=== PATIENT | male | born 1965 | race Caucasian/White ===

== ENCOUNTER 2018-03-25 16:38 | Outpatient (REF) | payer OTHER, SELFPAY ==
[2018-03-25 21:50] LABS: Anion Gap 7.1 mmol/L (3-11); BUN 12 mg/dL (7-18); CO2 30.9 mmol/L (21.0-32.0); CREATININE 0.74 mg/dL (0.70-1.30); Calcium 9.1 mg/dL (8.5-10.1); Chloride 102 mmol/L (98-107); Glucose 87 mg/dL (70-100); Potassium 3.4 mmol/L (3.5-5.1); Sodium 140 mmol/L (136-145)
== END 2018-03-25 16:58 ==
LOC: NCHCN 16:38
PROVIDERS: PCP Internal Medicine; Visit Provider Internal Medicine
DX: I10 Essential (primary) hypertension (principal)
CPT/HCPCS: 80048

== ENCOUNTER 2018-10-02 15:00 | Outpatient (REF) | payer OTHER, SELFPAY ==
[2018-10-02 21:39] LABS: Potassium 3.6 mmol/L (3.5-5.1)
== END 2018-10-02 15:20 ==
LOC: NCHCN 15:00
PROVIDERS: PCP Internal Medicine; Visit Provider Internal Medicine
DX: E87.6 Hypokalemia (principal)
CPT/HCPCS: 84132

== ENCOUNTER 2018-10-16 10:06 | Emergency (ER) | payer OTHER, SELFPAY ==
[2018-10-16 10:21] VITALS: BP 152/88; PULSE 81; RESP 16; TEMP 36.6; O2SAT 97
--- NOTE | 2018-10-16 10:42 | ED.GENADUL_ITS ---
Discharge Plan Disposition Patient Disposition: HOME Condition: Stable Discharge Details Chief Complaint: Orthopedic Clinical Impression: Sprain of left shoulder Primary Care Provider: Florencio Begum ED Provider: Brandon Goddard Home Meds and New Rx's Prescriptions: No Action ibuprofen [Ibuprofen IB] 200 MG tablet 200 mg PO PRN PRNRF: 0 hydrochlorothiazide 25 MG tablet 25 mg PO QAM RF: 0 losartan 100 MG tablet 100 mg PO DAILY RF: 0 amlodipine 5 MG tablet 5 mg PO DAILY RF: 0 potassium chloride 10 mEq Capsule, Extended Release 10 meq PO DAILY RF: 0 Discharge Instructions Instructions: Shoulder Sprain (ED) Additional Instructions: you can take 1000mg tylenol and 600mg ibuprofen every 6 hours for pain as needed if pain continues in a week see your primary care provider or you can call orthopedics if you choose for an appointment for a possible rotator cuff injury Referrals: Chito Taylor MD [ [facility] STAFF PHYSICIAN] - Medical Decision Making patient states on Saturday he was lifting the back door of a truck that was heavy and when it was above his shoulder he extended his arm and caused pain in the left shoulder. Denies falls or other trauma. Has had pain since so came here. He has no palpable or visible deformity of the left shoulder. Has pain with rom but is able to range it to just about 90 degrees abduction then I can passively range it fully so doubt fx and dislocation and do not feel xray indicated. Has intact distal sensation and pulses without swelling so doubt entities such as dvt or arterial occlusion. He has full rom of the elbow wrist and hand. He is able to slowly lower the shoulder to his side so doubt full rotator cuff tear. I suspect sprain, will give sling to use prn and advised f/u with pcp if not bett er in a week or orthopedics Differential Diagnosis sprain, strain, rotator cuff injury HPI General Mode of arrival: ambulatory . Date/Time Provider Initiated Documentation: 10/16/18 10:26 . Limitations to Documentation: no limitations . Information obtained by: patient . History of Present Illness 52 year old M presents to the emergency department with the chief complaint of left shoulder pain, described as moderate, Quality is described as aching, and is localized to the left and upper extremity. Patient reports no radiation. Patient started experiencing this day(s) (3) and it has been constant. Rest improves symptom(s), Movement worsens symptoms . Patient notes no other symptoms.. Patient did receive the following treatments prior to arrival, none Related Data Home Medications Medication Instructions Recorded Confirmed hydrochlorothiazide 25 mg PO QAM 12/21/12 10/16/18 ibuprofen [Ibuprofen IB] 200 mg PO PRN PRN 12/21/12 10/16/18 losartan 100 mg PO DAILY 12/21/12 10/16/18 amlodipine 5 mg PO DAILY 05/25/14 10/16/18 potassium chloride 10 meq PO DAILY 10/16/18 10/16/18 Allergies Allergy/AdvReac Type Severity Reaction Status Date / Time bee Allergy Unknown Uncoded 10/16/18 10:23 General Stated Complaint: Orthopedic BEN: 4 Review of Systems Review of Systems All systems reviewed & are unremarkable except as noted in HPI and below Constitutional Denies chills, Denies fever(s) and Denies weakness Cardiovascular Denies chest pain and Denies dyspnea Respiratory Denies cough and Denies dyspnea Gastrointestinal Denies abdominal pain, Denies nausea and Denies vomiting Integumentary/Breasts Denies rash Neurologic Denies weakness [facility] Medical History Arthralgia HTN (hypertension) Surgical History Colonoscopy - MAC (11/04/17) Social History Smoking/Tobacco Use Status: Former Tobacco Use Drug use: Never Exam Const General: no acute distress Orientation: alert HENMT Head: normal to inspection Ears: external ears normal General nose exam: external nose normal Mouth: moist mucous membranes Eyes General: appearance normal, both eyes and all related structures Neck Neck: normal visual inspection Resp Effort & Inspection: normal respiratory effort and able to speak in complete sentences Cardio Rate: regular rate Skin General skin exam: no rashes or lesions noted Neuro General: alert and oriented x3 Extrem General: normal to inspection Psych Mental Status: mental status grossly normal Course Vital Signs Temperature 36.6 C 10/16/18 10:21 Pulse 81 10/16/18 10:21 Respiratory Rate 16 10/16/18 10:21 Blood Pressure 152/88 H 10/16/18 10:21 Pulse Oximetry 97 10/16/18 10:21 Temperature 36.6 C 10/16/18 10:21 Temperature Source Skin 10/16/18 10:21 Pulse 81 10/16/18 10:21 Respiratory Rate 16 10/16/18 10:21 Respiratory Effort Non-Labored 10/16/18 10:21 Blood Pressure 152/88 H 10/16/18 10:21 Blood Pressure Position Sitting 10/16/18 10:21 Pulse Oximetry 97 10/16/18 10:21 Oxygen Delivery Method Room Air 10/16/18 10:21 Oxygen Flow Rate 0 10/16/18 10:21 Pain Level 8 10/16/18 10:21
== END 2018-10-16 10:51 | disposition home or self-care (01) ==
PROVIDERS: Emergency Provider Emergency Medicine; PCP Internal Medicine
DX: S43.402A Unspecified sprain of left shoulder joint, initial encounter (principal); X50.0XXA Overexertion from strenuous movement or load, initial encounter
CPT/HCPCS: 96372; 99284; J1885; L3650

== ENCOUNTER 2019-12-09 08:44 | Outpatient (REF) | payer OTHER, SELFPAY ==
[2019-12-09 21:51] LABS: Anion Gap 6.9 mmol/L (3-11); BUN 13 mg/dL (7-18); CO2 31.1 mmol/L (21.0-32.0); CREATININE 0.86 mg/dL (0.70-1.30); Calcium 8.9 mg/dL (8.5-10.1); Calculated LDL 92 mg/dL (<100); Chloride 105 mmol/L (98-107); Cholesterol 167 mg/dL (<200); Glucose 83 mg/dL (74-106); HDL Cholesterol 59 mg/dL (40-60); Potassium 4.2 mmol/L (3.5-5.1); Sodium 143 mmol/L (136-145); Triglyceride 83 mg/dL (<150)
[2019-12-11 11:11] LABS: Lyme Ab w Rflx to Lyme Confirm Negative (Negative)
[2019-12-14 23:59] LABS: Anaplasma phagocytophilum Negative (Negative); B. miyamotoi PCR Negative (Negative); Babesia divergens/MO-1 Negative (Negative); Babesia duncani Negative (Negative); Babesia microti Negative (Negative); Ehrlichia chaffeensis Negative (Negative); Ehrlichia ewingii/canis Negative (Negative); Ehrlichia muris eauclairensis Negative (Negative)
== END 2019-12-09 09:04 ==
LOC: NCHCN 08:44
PROVIDERS: PCP Internal Medicine; Visit Provider Physician Assistant
DX: I10 Essential (primary) hypertension (principal); M25.50 Pain in unspecified joint
CPT/HCPCS: 80048; 80061; 87798; 86618

== ENCOUNTER 2020-09-27 09:58 | Outpatient (REF) | payer OTHER, SELFPAY ==
[2020-09-27 13:19] LABS: Anion Gap 8.1 mmol/L (3-11); BUN 14 mg/dL (7-18); CO2 28.9 mmol/L (21.0-32.0); CREATININE 0.8 mg/dL (0.70-1.30); Calcium 9.1 mg/dL (8.5-10.1); Chloride 102 mmol/L (98-107); Glucose 85 mg/dL (74-106); Potassium 3.9 mmol/L (3.5-5.1); Sodium 139 mmol/L (136-145)
== END 2020-09-27 09:59 | disposition home or self-care (01) ==
LOC: NCHCN 09:58
PROVIDERS: PCP Internal Medicine; Visit Provider Internal Medicine
DX: I10 Essential (primary) hypertension (principal)
CPT/HCPCS: 80048

== ENCOUNTER 2020-10-31 22:02 | Emergency (ER) | payer OTHER, SELFPAY ==
[2020-10-31 22:20] VITALS: BP 174/92; PULSE 69; RESP 18; TEMP 36.7; O2SAT 98
[2020-10-31 22:30] VITALS: BP 174/92; PULSE 72; O2SAT 98
--- NOTE | 2020-10-31 22:30 | ED.GENADUL_ITS ---
Discharge Plan Disposition Patient Disposition: HOME Condition: Stable Discharge Details Clinical Impression: Abdominal pain, Nausea, Lesion of liver Primary Care Provider: Florencio Begum ED Provider: Ron Saenz Home Meds and New Rx's Prescriptions: Continued ibuprofen [Ibuprofen IB] 200 MG tablet 200 mg PO PRN PRNRF: 0 hydrochlorothiazide 25 MG tablet 25 mg PO QAM RF: 0 losartan 100 MG tablet 100 mg PO DAILY RF: 0 amlodipine 5 MG tablet 5 mg PO DAILY RF: 0 potassium chloride 10 mEq Capsule, Extended Release 10 meq PO DAILY RF: 0 Discharge Instructions Instructions: Abdominal Pain (ED) Additional Instructions: At this time your CAT scan and labs are very reassuring. Your pain may have been from a kidney stone that was passed. Please take the Zofran nausea medicine as needed. Stick with an easy diet for the next few days of bananas, rice, applesauce and toast. If you notice any worsening of your symptoms, or any new symptoms such as vomiting, diarrhea, fever, chills, shortness of breath, chest pain, numbness, weakness, or fainting , please return immediately to the emergency department for reevaluation. Please follow up with your primary care provider as soon as possible for reassessment and reevaluation. As always, it was a pleasure participating in your medical care today. As we discussed together there are some very small indiscriminate lesions on your liver and adrenal glands. These are likely benign and unremarkable. However as a safety precaution I will add these to your diagnoses for follow-up with your primary care provider. No indication for emergent or immediate follow-up for these at this time though. Referrals: Florencio Begum MD [Primary Care Provider] - Medical Decision Making <Brandon Goddard MD - Last Filed: 10/31/20 22:35> 55 yo male with hx of htn denies prior abdomen surgeries comes in with nausea and lower abdomen pain. HE states 3 days ago he started to have right lower abdomen pain which resolved yesterday. HE has also had nausea and today lower abdomen discomfort left more than right. Denies vomit, diarrhea, fevers, chest pain, dyspnea. HAs never had symptoms like this before in the past. On exam has no upper abdomen tenderness but is tender in the lower abdomen left more than right without guarding or rebound. No scrotal swelling or tenderness. Given symptoms and location of pain will obtain lab work and ct abd/pelvis to evaluate for possible diverticulitis vs sbo pt signed out to oncoming provider pending labs and imaging results Differential Diagnosis Differential Diagnosis: diverticulitis, sbo, constipation <Ron Saenz, - Last Filed: 11/01/20 00:07> Patient was signed out to me by my colleague Dr. Goddard. Please refer to his HPI, physical exam assessment and plan. At time of signout we are pending labs and CT scan. Labs have returned, mild white count, no bandemia. Electrolytes stable, potassium minimally low at 3.3. Urinalysis shows a small amount of RBCs, but otherwise no infection. On reassessment patient's pain is nearly completely resolved, he feels much better and states that he now feels hungry and would like to go home and eat. Repeat abdominal exam demonstrates no clinical evidence of an acute surgical abdomen at all. Suspect that the patient may have had a small passed kidney stone, or potentially mild gastroenteritis. At this time with work-up showing no evidence of acute surgical pathology, or other significant abnormality I do feel that the patient is stable for discharge clinically. Patient will be discharged home, discussed importance of close follow-up and red flags which to return. I did offer to call the patient's and inform her of the findings however he stated that he would fill her in on the details himself. I have extensively reviewed the treatment plan and disc harge instructions with the patient. I have addressed all patient concerns at this time. The patient was made aware of what symptoms to monitor for that would warrant a return to the emergency department. Discussed the plan with the patient, they demonstrate verbal understanding and agreement with our assessment and plan at this time. The documentation in this chart was dictated using [employer] dictation software. Please excuse any dictation errors. FINDINGS: Liver: Several small hypodensities within the right hepatic lobe, less than 5 mm, too small to accurately characterize. Gallbladder and bile ducts: No calcified stones. No ductal dilation. Pancreas: Unremarkable. No ductal dilation. Spleen: Unremarkable. No splenomegaly. Adrenal glands: Thickened left adrenal gland, however, no discrete adrenal masses or nodules identified. Right adrenal gland is grossly unremarkable. Kidneys and ureters: 5 mm left renal cortical hypodensity, too small to accurately characterize, likely small cyst. Stomach and bowel: Colonic diverticulosis. Appendix: No evidence of appendicitis. Intraperitoneal space: No free air. No significant fluid collection. Vasculature: Bilateral pelvic phleboliths. Lymph nodes: No enlarged lymph nodes. Urinary bladder: Unremarkable as visualized. Reproductive: Unremarkable as visualized. Bones/joints: Degenerative changes within lumbar spine. Soft tissues: Small fat containing umbilical hernia. IMPRESSION: No acute intra-abdominal pathology. No evidence for bowel obstruction or perforation. No evidence for colitis or diverticulitis. See the body of the report for the remainder of ancillary findings. Thank you for allowing us to participate in the care of your patient. Dictated and Authenticated by: Karlo Chase MD 10/31/2020 11:48 PM Eastern Time ([place] & [place]) HPI <Brandon Goddard MD - Last Filed: 10/31/20 22:35> General Mode of arrival: ambulatory . Date/Time Provider Initiated Documentation: 10/31/20 22:02 . Limitations to Documentation: no limitations . Information obtained by: patient . History of Present Illness 55 year old M presents to the emergency department with the chief complaint of nausea, described as moderate, and is localized to the abdomen. Patient reports no radiation. and it has been constant. No relieving factors improve symptom(s), No exacerbating factors reported . Patient notes other (abdomen pain). Patient did receive the following treatments prior to arrival, none Related Data Home Medications Medication Instructions Recorded Confirmed hydrochlorothiazide 25 mg PO QAM 12/21/12 10/16/18 ibuprofen [Ibuprofen IB] 200 mg PO PRN PRN 12/21/12 10/16/18 losartan 100 mg PO DAILY 12/21/12 10/16/18 amlodipine 5 mg PO DAILY 05/25/14 10/16/18 potassium chloride 10 meq PO DAILY 10/16/18 10/16/18 Allergies Allergy/AdvReac Type Severity Reaction Status Date / Time bee Allergy Unknown Uncoded 10/31/20 22:47 General BEN: 4 Review of Systems <Brandon Goddard MD - Last Filed: 10/31/20 22:35> All systems reviewed & are unremarkable except as noted in HPI and below Constitutional Constitutional: Denies chills, Denies fever(s) and Denies weakness Cardiovascular Cardiovascular: Denies chest pain and Denies dyspnea Respiratory Respiratory: Denies cough and Denies dyspnea Gastrointestinal Gastrointestinal: Denies vomiting Genitourinary Genitourinary: Denies dysuria Musculoskeletal Musculoskeletal: Denies joint swelling Neurologic Neurologic: Denies weakness PFSH <Brandon Goddard MD - Last Filed: 10/31/20 22:35> Medical History (Updated 11/01/20 @ 00:04 by Ron Saenz DO) Arthralgia HTN (hypertension) Surgical History Colonoscopy - MAC (11/04/17) Social History Smoking/Tobacco Use Status: Former Tobacco Use Smoking risk assessment performed?: Yes Drug use: Never Exam <Brandon Goddard MD - Last Filed: 10/31/20 22:35> Const General: no acute distress Orientation: alert HENNH Head: normal to inspection Ears: external ears normal General nose exam: external nose normal Mouth: moist mucous membranes Eyes General: appearance normal, both eyes and all related structures Neck Neck: normal visual inspection Resp Effort & Inspection: normal respiratory effort and able to speak in complete sentences Cardio Rate: regular rate GI Palpation: soft and tender Skin General skin exam: no rashes or lesions noted Neuro General: patient alert and patient oriented x3 Extrem General: normal to inspection Psych Mental Status: mental status grossly normal Sign Out <Brandon Goddard MD - Last Filed: 10/31/20 22:35> Sign Out Data: Sign Out Comment: nausea and lower abdomen tenderness, pending labs and ct Last updated by Brandon Goddard MD at 10/31/20 22:36
--- NOTE | 2020-10-31 22:30 | DI.CT_ITS ---
Exam(s) CT ABDOMEN PELVIS W EXAM: CT ABDOMEN PELVIS W CLINICAL HISTORY: abdomen pain, nausea and vomit TECHNIQUE: COMPARISON: No exams were available for comparison FINDINGS: CT examination of the abdomen and pelvis was performed with bolus infusion of 100 cc of Omnipaque 350 . Images obtained through the lung bases are unremarkable. The liver appears normal with no evidence of a focal mass. Spleen is unremarkable in appearance.. Gallbladder and bile ducts are unremarkable. Pancreas contains a midbody low-attenuation lobulated or multi septated mass, likely cystic, measurin g about 18 millimeters in greatest diameter period. Cystic pancreatic neoplasm not excluded, pancrea tic protocol MRI requested for further characterization. Adrenals appear normal bilaterally. Kidneys appear normal with no evidence of renal mass, hydronephrosis, or nephrolithiasis. Tiny lower pole left renal cyst noted. Unremarkable nearly empty urinary bladder. There is no evidence of abdominal or pelvic adenopathy. Abdominal aorta is of normal diameter and no abnormality is seen involving major visceral branches.. Appendix is normal. No evidence diverticulitis or bowel obstruction. No significant abdominal wall hernia seen. Impression: No evidence of acute process. However there is mid body pancreatic mass, likely cystic. Pancreatic MR requested for correlation. RADIATION DOSE DELIVERED: 970.79mGy.cm Total DLP 970.79mGy.cm Total DLP DATA REPOSITORY: All CT scans at this facility are submitted to the National Radiology Data Registry (NRDR) Dose Index Registry (DIR) with the [employer] (A[employer]). RADIATION OPTIMIZATION: All CT scans at this facility use at least one of these dose optimization te chniques: automated exposure control; mA and/or kV adjustment per patient size (includes targeted exa ms where dose is matched to clinical indication); or iterative reconstruction.
[2020-10-31 22:40] LABS: Abs Immature Grans 0.06 10^3/uL (0.0-0.06); Absolute Lymphocyte Count 1.23 10^3/uL (1.2-3.4); Basophils % 0.3; Eosinophils % 0.1; HCT 42.4 % (40.0-50.0); Immature Grans % 0.4; Lymphocytes % 7.7; MCH 29.6 pg (27.0-33.0); MCHC 35.4 % (32.0-36.0); MCV 83.6 fL (80-95); MPV 9.2 fL (8.0-11.0); Monocytes % 6.5; Nucleated RBC 0 %; Platelet Count 301 10^3/uL (130-400); RBC 5.07 10^6/uL (4.36-5.78); RDW 12.5 % (11.8-14.1); RDW-SD 37.7 fL; WBC 15.94 10^3/uL (4.4-10.8)
[2020-10-31 22:45] LABS: Absolute Basophil Count 0.05 10^3/uL (0.0-0.2); Absolute Eosinophil Count 0.02 10^3/uL (0.0-0.7); Absolute Monocyte Count 1.04 10^3/uL (0.1-0.8); Absolute Neutrophil Count 13.55 10^3/uL (1.2-6.7)
[2020-10-31] MEDS: Ondansetron 4 MG/2 ML VIAL IVP (22:46)
[2020-10-31 22:58] LABS: ALT 24 U/L (16-63); AST 12 U/L (15-37); Albumin 4.1 g/dL (3.4-5.0); Alkaline Phosphatase 51 U/L (46-116); Anion Gap 12.9 mmol/L (3-11); BUN 13 mg/dL (7-18); Bilirubin, Direct 0.2 mg/dL (0.0-0.2); Bilirubin, Total 0.9 mg/dL (0.2-1.0); CO2 22.1 mmol/L (21.0-32.0); CREATININE 0.8 mg/dL (0.70-1.30); Calcium 9.1 mg/dL (8.5-10.1); Chloride 104 mmol/L (98-107); Glucose 122 mg/dL (74-106); Lipase 31 U/L (73-393); Potassium 3.3 mmol/L (3.5-5.1); Sodium 139 mmol/L (136-145); Total Protein 7.6 g/dL (6.4-8.2)
[2020-10-31 23:08] LABS: Bilirubin Negative (Negative); Blood Small (Negative); Clarity Clear (Clear); Glucose 100 mg/dL (Negative); Ketones 15 mg/dL (Negative); Leukocyte Esterase Negative (Negative); Nitrite Negative (Negative); Specific Gravity 1.025 (1.005-1.025); Urobilinogen 0.2 EU/dL (Up TO 0.2)
[2020-10-31 23:12] LABS: Bacteria Rare HPF (Negative); C & S Indicated? No; Casts Negative LPF (Negative); Crystals Negative HPF (Negative); Epithelial Cells Few HPF (Negative); Mucus Heavy (Negative); WBC Negative HPF (0-5)
[2020-10-31 23:20] VITALS: BP 152/92; PULSE 66
[2020-10-31] MEDS: Normal Saline - Diluent 50 ML VIAL IV (23:22)
[2020-10-31] MEDS: Omnipaque 350 MG/ML 100 ML BTL IJ (23:22)
[2020-10-31] MEDS: Normal Saline Flush 10 ML SYR IVP (23:23)
[2020-10-31 23:30] VITALS: BP 150/96; PULSE 66; O2SAT 97
[2020-10-31 23:45] VITALS: BP 171/94; PULSE 67
--- NOTE | 2020-10-31 23:49 | DI.VRAD_ITS ---
PROCEDURE INFORMATION: Exam: CT Abdomen And Pelvis With Contrast Exam date and time: 10/31/2020 11:12 PM Age: 55 years old Clinical indication: Localized; Patient HX: Lower abdominal pain for 3 days with nausea and vomiting TECHNIQUE: Imaging protocol: Computed tomography of the abdomen and pelvis with contrast. Radiation optimization: All CT scans at this facility use at least one of these dose optimization techniques: automated exposure control; mA and/or kV adjustment per patient size (includes targeted exams where dose is matched to clinical indication); or iterative reconstruction. Contrast material: OMNIPAQUE 350; Contrast volume: 100 ml; Contrast route: INTRAVENOUS (IV); COMPARISON: No relevant prior studies available. FINDINGS: Liver: Several small hypodensities within the right hepatic lobe, less than 5 mm, too small to accurately characterize. Gallbladder and bile ducts: No calcified stones. No ductal dilation. Pancreas: Unremarkable. No ductal dilation. Spleen: Unremarkable. No splenomegaly. Adrenal glands: Thickened left adrenal gland, however, no discrete adrenal masses or nodules identified. Right adrenal gland is grossly unremarkable. Kidneys and ureters: 5 mm left renal cortical hypodensity, too small to accurately characterize, likely small cyst. Stomach and bowel: Colonic diverticulosis. Appendix: No evidence of appendicitis. Intraperitoneal space: No free air. No significant fluid collection. Vasculature: Bilateral pelvic phleboliths. Lymph nodes: No enlarged lymph nodes. Urinary bladder: Unremarkable as visualized. Reproductive: Unremarkable as visualized. Bones/joints: Degenerative changes within lumbar spine. Soft tissues: Small fat containing umbilical hernia. IMPRESSION: No acute intra-abdominal pathology. No evidence for bowel obstruction or perforation. No evidence for colitis or diverticulitis. See the body of the report for the remainder of ancillary findings. Dictated and Authenticated by: Karlo Chase MD. Ordering:RONALDO Taylor MD
[2020-11-01] MEDS: Ondansetron O.D.T. 4 MG TABEF, 3 TABS/BTL PO (00:08)
[2020-11-01 00:09] VITALS: BP 165/87; PULSE 65; RESP 16; O2SAT 99
--- NOTE | 2020-11-01 08:19 | W.ED.FU ---
I received call from radiology with over read of CT of the abdomen pelvis now noting pancreatic cystic mass not seen on initial interpretation. Radiology recommends MRI of the pancreas as a follow-up outpatient study. Patient has been discharged from the ED. I called and spoke with the patient's primary care physician, Dr. Begum, discussed this incidental finding. He was already aware of other incidental findings. He will follow up with the patient and arrange additional outpatient diagnostic studies.
== END 2020-11-01 00:18 | disposition home or self-care (01) ==
PROVIDERS: Emergency Medicine; Emergency Provider Student in an Organized Health Care Education/Training Program; PCP Internal Medicine
DX: R10.30 Lower abdominal pain, unspecified (principal); R11.0 Nausea; R93.2 Abnormal findings on diagnostic imaging of liver and biliary tract; R93.3 Abnormal findings on diagnostic imaging of other parts of digestive tract
CPT/HCPCS: 36415; 80053; 83690; 96374; 99285; 74177; 81003; 81015; 82248; 83735; 85025; 99284; J2405; J3490

== ENCOUNTER 2020-11-28 02:20 | Outpatient (CLI) | payer OTHER, SELFPAY ==
--- NOTE | 2020-11-28 | DI.MRI_ITS ---
Exam(s) MR ABDOMEN WO/W EXAM: MR ABDOMEN WO/W CLINICAL HISTORY: PANCREATIC LESION,K86.9 TECHNIQUE: Multiplanar multisequence MRA of the Abdomen was performed. CONTRAST MATERIAL: IV Contrast: mL of Dotarem contrast administered. COMPARISON: CT CT ABDOMEN PELVIS W from 10/31/2020 FINDINGS: Liver: Unremarkable. Pancreas: There is a 1.6 x 1.2 cm cystic lesion in the mid body of the pancreas. It is hyperintense on the T2 weighted images and hypointense on the T1 weighted images. There does appear to be an inte rnal septation. No significant enhancement is identified. No solid nodule is identified. The pancr eatic duct is unremarkable. Gallbladderand Bile Ducts: Unremarkable. No biliary ductal dilatation. Adrenals: Unremarkable. Kidneys: There are bilateral 6 mm simple renal cysts. No further follow-up is recommended. Spleen: Unremarkable. Aorta: Unremarkable. Soft Tissues: Unremarkable. Bone: Unremarkable. Lymph Nodes: Unremarkable. IMPRESSION: 1.6 x 1.2 cm cyst in the body of the pancreas. It contains a thin internal septation. No solid nodu le component is identified. Pancreatic duct is unremarkable. While this may represent a benign panc reatic cyst neoplasm cannot be entirely excluded. DATA REPOSITORY:
[2020-11-28] MEDS: Gadoterate meglumine 20 ML VIAL 19 ML IVP (08:47)
== END 2020-11-28 02:40 ==
PROVIDERS: PCP Internal Medicine; Visit Provider Internal Medicine
DX: K86.89 Other specified diseases of pancreas (principal); N28.1 Cyst of kidney, acquired; K86.2 Cyst of pancreas
CPT/HCPCS: 74183

== ENCOUNTER → 2021-11-14 11:37 | Outpatient (CLI) | payer OTHER, SELFPAY ==
--- NOTE | 2021-11-14 | DI.RAD_ITS ---
Exam(s) XR KNEE LT 3V AP,LAT,HERBERT EXAM: XR KNEE LT 3V AP,LAT,HERBERT CLINICAL HISTORY: LEFT KNEE JOINT PAIN -- M25.562 TECHNIQUE: COMPARISON: No exams were available for comparison FINDINGS: Three views were obtained. There is moderate narrowing of the medial tibiofemoral cartilaginous join t space. There is a probable small knee joint effusion. There are moderate marginal osteophytes at the medial tibiofemoral joint and patellofemoral joint. No other significant bony abnormality seen. IMPRESSION: DJD predominantly involving medial tibiofemoral joint RADIATION DOSE DELIVERED: Total DLP
== END ==
PROVIDERS: PCP Internal Medicine; Visit Provider Internal Medicine
DX: M25.562 Pain in left knee (principal); M25.462 Effusion, left knee; M17.12 Unilateral primary osteoarthritis, left knee
CPT/HCPCS: 73562

== ENCOUNTER 2021-11-14 18:34 | Outpatient (REF) | payer OTHER, SELFPAY ==
[2021-11-14 14:49] LABS: HGB 15.4 g/dL (13.5-17.5); MCH 28.6 pg (27.0-33.0); MCHC 33.5 % (32.0-36.0); MCV 85 fL (80-95); Platelet Count 287 10^3/uL (130-400); RBC 5.39 10^6/uL (4.36-5.78); RDW 13.1 % (11.8-14.1); RDW-SD 40.6 fL; WBC 8.51 10^3/uL (4.4-10.8)
[2021-11-14 15:05] LABS: ALT 32 U/L (16-63); AST 21 U/L (15-37); Albumin 4.4 g/dL (3.4-5.0); Alkaline Phosphatase 68 U/L (46-116); Anion Gap 10.2 mmol/L (3-11); BUN 14 mg/dL (7-18); Bilirubin, Total 0.6 mg/dL (0.2-1.0); CO2 27.8 mmol/L (21.0-32.0); CREATININE 0.8 mg/dL (0.70-1.30); Calcium 9.3 mg/dL (8.5-10.1); Chloride 103 mmol/L (98-107); Glucose 80 mg/dL (74-106); Lipase 39 U/L (73-393); Potassium 4.1 mmol/L (3.5-5.1); Sodium 141 mmol/L (136-145); Total Protein 7.8 g/dL (6.4-8.2)
[2021-11-14 22:49] LABS: PSA, Screening 1.2 ng/mL (<=3.5)
== END 2021-11-14 18:35 | disposition home or self-care (01) ==
LOC: NCHCN 18:34
PROVIDERS: PCP Internal Medicine; Visit Provider Internal Medicine
DX: Z00.00 Encounter for general adult medical examination without abnormal findings (principal); I10 Essential (primary) hypertension; K86.89 Other specified diseases of pancreas; M25.562 Pain in left knee; Z12.5 Encounter for screening for malignant neoplasm of prostate
CPT/HCPCS: 80053; 83690; 84153; 85027

== ENCOUNTER → 2021-12-06 01:25 | Outpatient (CLI) | payer OTHER, SELFPAY ==
--- NOTE | 2021-12-06 | DI.MRI_ITS ---
Exam(s) MR ABDOMEN WO/W EXAM: MR ABDOMEN WO/W CLINICAL HISTORY: PANCREATIC LESION K86.9, FU PANCREATIC CYST TECHNIQUE: Multiplanar multisequence MRI was performed with both pre and post contrast infused seque nces. Contrast injected sequences were performed following IV injection of 20 cc of Dotarem. COMPARISON: CT CT ABDOMEN PELVIS W from 10/31/2020 MR MR ABDOMEN WO/W from 11/28/2020 FINDINGS: VISUALIZED LUNG BASES: No pleural effusions evident. There is no ascites evident. LIVER: Liver size is normal. No steatosis. No new discrete focal hepatic lesions identified. Tiny cyst in the right hepatic lobe is unchanged from November 2020. BILIARY: There is no obvious gallbladder pathology. The CBD is not dilated. PANCREAS: Previously described lobulated cystic lesion in the pancreatic body is again noted. It exh ibits minimal if any significant change in size. It presently measures 1.3 millimeters wide by 1.4 c m AP by 1.7 cm craniocaudal. Does not appear to exhibit internal enhancement. On the coronal images the appearance is quite similar to last year with a multi compartmental appearance again noted. On the axial images the compartments appear more evident on present study. There are no additional bharathi lar appearing lesions in the pancreas evident nor in the liver. The pancreatic duct is not dilated. Uncinate process unremarkable. SPLEEN: Spleen size is normal. ADRENALS: There are no significant adrenal masses. KIDNEYS: No solid renal masses. No hydronephrosis.Tiny cysts noted in the inferior pole the left kid delio, unchanged. ABDOMINAL AORTA: Not enlarged and there is no significant para-aortic adenopathy. ANTERIOR ABDOMINAL WALL/GI: There is no evidence of significant anterior abdominal wall hernia in the field of view of this study.Is no evidence of obvious bowel obstruction. OSSEOUS: There are no lytic osseous lesions in the field of view of this study. Mild scoliosis in the lumbar spine convex left. IMPRESSION: 1. Compared to the prior MRI scan 1 year ago (11/28/2020) there is again noted the previously describ ed cystic lesion in the body of the pancreas, exhibiting internal septations and multicystic configur ation. There is no associated dilatation of the pancreatic duct and no new additional pancreatic les ions nor new lesions in the liver. This lesion exhibits very minimal increased in size from last year. Recommend continued close follow -up of this cystic neoplasm of the body of the pancreas. 2. Other findings as above. DATA REPOSITORY:
[2021-12-06] MEDS: Gadoterate meglumine 20 ML SYRINGE IVP (08:14)
== END ==
PROVIDERS: PCP Internal Medicine; Visit Provider Internal Medicine
DX: K86.2 Cyst of pancreas (principal)
CPT/HCPCS: 74183

== ENCOUNTER 2023-01-17 19:02 | Outpatient (REF) | payer OTHER, SELFPAY ==
[2023-01-17 17:56] LABS: ALT 25 U/L (16-63); AST 18 U/L (15-37); Alkaline Phosphatase 65 U/L (46-116); Anion Gap 7.2 mmol/L (3-11); BUN 17 mg/dL (7-18); Bilirubin, Total 0.5 mg/dL (0.2-1.0); CO2 28.8 mmol/L (21.0-32.0); CREATININE 0.9 mg/dL (0.70-1.30); Calcium 9.2 mg/dL (8.5-10.1); Chloride 106 mmol/L (98-107); Estimated GFR 99.62 (mL/min/1.73m2); Glucose 107 mg/dL (74-106); Potassium 3.9 mmol/L (3.5-5.1); Sodium 142 mmol/L (136-145); Total Protein 7.6 g/dL (6.4-8.2)
== END 2023-01-17 19:03 | disposition home or self-care (01) ==
LOC: NCHCN 19:02
PROVIDERS: PCP Internal Medicine; Visit Provider Internal Medicine
DX: I10 Essential (primary) hypertension (principal); R20.2 Paresthesia of skin; M17.12 Unilateral primary osteoarthritis, left knee
CPT/HCPCS: 80053

== ENCOUNTER 2023-09-12 15:13 | Outpatient (CLI) | payer OTHER, SELFPAY ==
--- NOTE | 2023-09-12 14:30 | DI.RAD_ITS ---
Exam(s) XR KNEE LT 3V AP,LAT,HERBERT EXAM: XR KNEE LT 3V AP,LAT,HERBERT CLINICAL HISTORY: left knee pain. TECHNIQUE: 2D digital imaging was performed. Three views. COMPARISON: CR XR KNEE LT 3V AP,LAT,HERBERT from 11/14/2021 FINDINGS: BONES: No acute fracture is present. No bony destructive lesion is seen. Enthesophyte at quadricep s insertion on patella. JOINTS: Moderate narrowing of the medial femoral tibial joint space. Periarticular spurring and scle rosis present. There is also noted at the patellofemoral joint. No joint effusion is seen. SOFT TISSUE: Normal. IMPRESSION: Stable moderate degenerative changes. DATA REPOSITORY: RADIATION DOSE DELIVERED:
== END 2023-09-12 15:14 | disposition home or self-care (01) ==
LOC: DIORS 15:13
PROVIDERS: PCP Family Medicine; Visit Provider Physician Assistant
DX: M17.12 Unilateral primary osteoarthritis, left knee (principal)
CPT/HCPCS: 73562

== ENCOUNTER → 2023-11-27 02:01 | Outpatient (CLI) | payer OTHER, SELFPAY ==
[2023-11-27 08:54] LABS: HCT 43.8 % (40.0-50.0); HGB 14.7 g/dL (13.5-17.5); MCH 28.8 pg (27.0-33.0); MCHC 33.6 % (32.0-36.0); MCV 86 fL (80-95); MPV 9.4 fL (8.0-11.0); Platelet Count 249 10^3/uL (130-400); RDW 13.2 % (11.8-14.1); RDW-SD 41.3 fL
[2023-11-27 09:15] LABS: ALT 29 U/L (16-63); AST 18 U/L (15-37); Albumin 4.1 g/dL (3.4-5.0); Alkaline Phosphatase 59 U/L (46-116); Anion Gap 7.1 mmol/L (3-11); BUN 12 mg/dL (7-18); Bilirubin, Total 0.8 mg/dL (0.2-1.0); CO2 29.9 mmol/L (21.0-32.0); CREATININE 0.8 mg/dL (0.70-1.30); Calcium 8.8 mg/dL (8.5-10.1); Chloride 105 mmol/L (98-107); Estimated GFR 102.58 (mL/min/1.73m2); Glucose 91 mg/dL (74-106); Potassium 3.7 mmol/L (3.5-5.1); Sodium 142 mmol/L (136-145); Total Protein 7.5 g/dL (6.4-8.2)
[2023-11-27] MEDS: Gadoterate meglumine 20 ML VIAL IVP (09:56)
--- NOTE | 2023-11-27 10:15 | DI.MRI_ITS ---
Exam(s) MR ABDOMEN WO/W EXAM: MR ABDOMEN WO/W CLINICAL HISTORY: CYST OF PANCREAS K86.2 TECHNIQUE: Multiplanar multisequence MRI of the Abdomen was performed. CONTRAST MATERIAL: IV Contrast: 20 mL of Dotarem contrast administered. COMPARISON: MR MR ABDOMEN WO/W from 12/06/2021 FINDINGS: The examination is limited due to patient motion artifact. Liver: Stable tiny simple cysts are seen in the liver. No follow-up is recommended. No suspicious h epatic masses are present. Pancreas: There is again seen a lobulated nonenhancing cystic lesion in the body of the pancreas. It measures 1.4 transverse by 1.2 AP 6 cm which is unchanged. No other pancreatic masses are seen. Th ere is no pancreatic ductal dilatation or peripancreatic fluid collection. Gallbladder and Bile Ducts: No evidence of cholelithiasis or biliary ductal dilatation. Adrenals: Unremarkable. Kidneys: Bilateral simple renal cysts. No follow-up is recommended. Spleen: Unremarkable. Bowel: Unremarkable. No evidence of bowel wall thickening or obstruction. Aorta: Unremarkable. No evidence of an aneurysm. Soft Tissues: Unremarkable. Bone: Unremarkable. No aggressive osseous lesions are seen. Lymph Nodes: No upper abdominal adenopathy is present. Peritoneum: No abdominal ascites. IMPRESSION: 1. Stable pancreatic cystic lesion. Follow-up examination in 2 years is recommended to document stab ility. (Katia et al, 2017). 2. No evidence of an abdominal mass or enhancing lesion. DATA REPOSITORY:
== END ==
PROVIDERS: PCP Family Medicine; Visit Provider Family Medicine
DX: K86.2 Cyst of pancreas (principal)
CPT/HCPCS: 74183; 80053; 85027

== ENCOUNTER 2024-01-14 09:20 | Outpatient (REF) | payer OTHER, SELFPAY ==
[2024-01-14 15:35] LABS: Calculated LDL 92 mg/dL (<100); Cholesterol 172 mg/dL (<200); HDL Cholesterol 59 mg/dL (40-60); Triglyceride 106 mg/dL (<150)
== END 2024-01-14 09:21 | disposition home or self-care (01) ==
LOC: NCHCN 09:20
PROVIDERS: PCP Family Medicine; Visit Provider Family Medicine
DX: Z00.00 Encounter for general adult medical examination without abnormal findings (principal); Z13.220 Encounter for screening for lipoid disorders
CPT/HCPCS: 80061

== ENCOUNTER 2024-01-21 21:12 | Outpatient (REF) | payer OTHER, SELFPAY ==
[2024-01-22 20:16] LABS: PSA, Diagnostic 1.5 ng/mL (<=3.5)
== END 2024-01-21 21:13 | disposition home or self-care (01) ==
LOC: NCHCN 21:12
PROVIDERS: PCP Family Medicine; Visit Provider Family Medicine
DX: N40.1 Benign prostatic hyperplasia with lower urinary tract symptoms (principal)
CPT/HCPCS: 84153

== ENCOUNTER 2025-01-28 14:41 | Outpatient (REF) | payer OTHER, SELFPAY ==
[2025-01-28 14:40] LABS: Abs Immature Grans 0.05 10^3/uL (0.0-0.06); HCT 44.3 % (40.0-50.0); HGB 14.9 g/dL (13.5-17.5); Immature Grans % 0.5 %; MCH 28.2 pg (27.0-33.0); MCHC 33.6 % (32.0-36.0); MCV 84 fL (80-95); MPV 10.7 fL (8.0-11.0); Platelet Count 270 10^3/uL (130-400); RBC 5.29 10^6/uL (4.36-5.78); RDW 13.4 % (11.8-14.1); RDW-SD 41.1 fL; WBC 9.27 10^3/uL (4.4-10.8)
[2025-01-28 14:53] LABS: ALT 72 U/L (16-63); AST 52 U/L (15-37); Albumin 4.0 g/dL (3.4-5.0); Alkaline Phosphatase 78 U/L (46-116); Anion Gap 9.0 mmol/L (3-11); BUN 15 mg/dL (7-18); Bilirubin, Total 0.5 mg/dL (0.2-1.0); CO2 28.0 mmol/L (21.0-32.0); Calcium 9.0 mg/dL (8.5-10.1); Chloride 104 mmol/L (98-107); Estimated GFR 101.95 (mL/min/1.73m2); Glucose 114 mg/dL (74-106); Potassium 3.8 mmol/L (3.5-5.1); Sodium 141 mmol/L (136-145); Total Protein 7.2 g/dL (6.4-8.2)
== END 2025-01-28 14:42 | disposition home or self-care (01) ==
LOC: NCHCN 14:41
PROVIDERS: PCP Family Medicine; Visit Provider Family Medicine
DX: I10 Essential (primary) hypertension (principal)
CPT/HCPCS: 80053; 85025

== ENCOUNTER 2025-02-12 11:30 | Outpatient (CLI) | payer OTHER, SELFPAY ==
--- NOTE | 2025-02-12 10:30 | DI.RAD_ITS ---
Exam(s) XR STANDING ALIGNMENT EXAM: XR STANDING ALIGNMENT CLINICAL HISTORY: PRE OP L TKA. TECHNIQUE: 2D digital imaging was performed. COMPARISON: No exams were available for comparison FINDINGS: 3 views There is narrowing of the medial compartments of both knees, slightly more prominent on the left side where there also marginal osteophytes off the medial compartment of the left knee. Smaller marginal osteophytes are seen off the medial compartment of the right knee. The lateral compartments of knees exhibit normal height and no osteophytes. No obvious chondrocalcinosis. There are mild degenerative changes in the hips. Ankles unremarkable. No osseous lesions. IMPRESSION: Significant degenerative changes in the medial compartments of both knees, more prominent on the left side. DATA REPOSITORY: RADIATION DOSE DELIVERED:
--- NOTE | 2025-02-12 10:30 | DI.RAD_ITS ---
Exam(s) XR KNEE LT 1V EXAM: XR KNEE LT 1V CLINICAL HISTORY: PRE OP L TKA. TECHNIQUE: 2D digital imaging was performed. COMPARISON: CR XR KNEE LT 3V AP,LAT,HERBERT from 09/12/2023 FINDINGS: Single lateral view of the left hip: There is significant narrowing of the medial compartment. There is also moderate degenerative change in the patellofemoral compartment. Also evident is an enthesophyte on the anterosuperior aspect of the patella-quadriceps insertion site. Are also multiple calcifications posteriorly in the knee joint. One of these may represent a fabella but the others may be loose intra-articular bodies. Appears to be a small amount of increased joint fluid. IMPRESSION: Degenerative changes in the medial and patellofemoral compartments. Other findings as above. DATA REPOSITORY: RADIATION DOSE DELIVERED:
== END 2025-02-12 11:31 | disposition home or self-care (01) ==
LOC: DIORS 11:30
PROVIDERS: PCP Family Medicine; Visit Provider Physician Assistant
DX: M17.12 Unilateral primary osteoarthritis, left knee (principal); M16.12 Unilateral primary osteoarthritis, left hip; M16.11 Unilateral primary osteoarthritis, right hip
CPT/HCPCS: 73560; 77073

== ENCOUNTER 2025-02-23 09:12 | Day surgery (SDC) | payer OTHER, SELFPAY ==
[2025-02-23] VITALS (22 sets, daily range): BP systolic 107–141; BP diastolic 65–90; PULSE 57–71; RESP 8–24; TEMP 36.4–36.9; O2SAT 95–99; BMI 28.8
--- NOTE | 2025-02-23 07:15 | W.PM.DSUDISC ---
Date of service: 02/23/25 Discharge Plan Disposition Patient Disposition: Home Condition: Good Discharge Details Reason For Visit: Left knee DJD Attending Provider: Chito Taylor Primary Care Provider: Cj Rollins Home Meds and New Rx's Prescriptions: New acetaminophen 500 mg tablet 1,000 mg PO Q8H PRN Qty: 90 0RF Rx Instructions: Take two tablets up to every 8 hours as needed for pain aspirin 81 mg tablet,delayed release (DR/EC) 81 mg PO BID 30 Days Qty: 60 0RF celecoxib [Celebrex] 200 mg capsule 200 mg PO BID PRNQty: 60 0RF Rx Instructions: Take one tablet twice daily for pain and inflammation docusate sodium [Colace] 100 mg capsule 100 mg PO BID Qty: 28 0RF pantoprazole 40 mg tablet,delayed release (DR/EC) 40 mg PO DAILY Qty: 14 0RF Rx Instructions: Take one tablet once daily dexamethasone 4 mg tablet 4 mg PO DAILY Qty: 2 0RF Rx Instructions: Take one tablet once daily for two days gabapentin 300 mg capsule 300 mg PO QHS Qty: 14 0RF Rx Instructions: Take one tablet at bedtime oxycodone 5 mg tablet 5 mg PO Q4H PRNQty: 18 0RF Rx Instructions: Take one tablet up to every 4 hours as needed for severe postoperative pain Continued diclofenac sodium 1 % gel 2 g topical TID PRN Rx Instructions: Apply a small amount to affected area three times a day as needed for pain, apply to left knee. amlodipine 10 mg tablet 10 mg PO DAILY hydrochlorothiazide 25 MG tablet 25 mg PO QAM losartan 100 MG tablet 100 mg PO DAILY potassium chloride 10 mEq Capsule, Extended Release 10 meq PO DAILY Discontinued acetaminophen 500 mg capsule 1,000 mg PO Q6H PRN Discharge Instructions Additional Instructions: Total Knee Discharge Instructions Activity: The most important activity is to walk and to work on gentle motion (both flexion and extension). You should try to take short walks a few times a day. It is important that when resting you work on keeping the knee straight. Avoid putting a pillow behind the knee as this will encourage flexion. Work on range of motion exercises as provided by Physical Therapy. - Start outpatient physical therapy within 2 weeks. - You should wear the JORGE ALBERTO hose on both legs for 2 weeks. You may remove these at night. You may also use any compression sock in place of the JORGE ALBERTO hose. - Utilize [employer] to review exercises, see videos on exercises and obtain basic information pertaining to your surgery and your recovery. Dressing: Remove the Sourav wrap by 2 days after your surgery and put on the JORGE ALBERTO stocking given to you from the hospital. Keep the surgical dressing (underneath the SOURAV wrap) in place for at least one week. After the first week it may be removed and replaced with light gauze and tape or nothing. The wound and dressing may get wet after 3 days but avoid soaking the dressing or otherwise it will need to be changed. Many people prefer covering the dressing with cling wrap (saran wrap) to minimize it from getting soaked. If it gets wet, just pat dry. If it starts to peel off then it will need to be changed. Medications: - You should take Tylenol and anti-inflammatory Celebrex as your primary pain control medications. If the Celebrex is too expensive or not covered, please call the office for another alternative (Advil/Ibuprofen or Naproxen/Aleve) - You have been prescribed a stronger pain medication Oxycodone for breakthrough pain, take as needed as prescribed. - You have also been prescribed a stomach acid reduction agent Pantoprozole to help reduce stomach acid and reflux. - You have been prescribed Gabapentin to take at night for restlessness and nerve pain. - You will be taking Aspirin 81mg twice a day for DVT prevention unless instructed otherwise. - You have also been prescribed Decadron to take to control post-operative nausea and pain. You will start this tomorrow. - If you have constipation you should take Colace (which has been prescribed) or Miralax (which is available [id number]). It takes most people 3-4 days to have a bowel movement. Follow-up: 2 weeks If you have any acute concerns or questions, please do not hesitate to contact the office at [phone]. You may contact Dr. Taylor with any questions after hours through the hospital at [phone] or on his cell phone at [phone]. Referrals: Chito Taylor MD [ [facility] STAFF PHYSICIAN, Orthopaedic Surgical] Equipment/Supplies: Walker Activity:: Elevate Remove Dressings/Wound Care:: Do Not Remove Shower/Bathe:: Cover Diet:: As Tolerated Discharge Orders Discharge Orders: Discharge Order (Routine); Ordered 02/23/25 Ordered By: Laurel Tyler
[2025-02-23] MEDS: Acetaminophen 500 MG TAB 1000 MG PO (10:03)
[2025-02-23] MEDS: Celecoxib 200 MG CAP 400 MG PO (10:03)
[2025-02-23] MEDS: Gabapentin 300 MG CAP PO (10:03)
[2025-02-23] MEDS: Lactated Ringers 1,000 ML 80 ML IV (10:13)
--- NOTE | 2025-02-23 10:18 | W.ANESPRE ---
General Info Date of Service Date Performed: 02/23/25 Height: 6 ft Weight: 96.615 kg Body Mass Index (BMI): 28.8 Surgical Procedure: Operation Date: 02/23/25 13:25 Proposed Procedure Side Surgeon p Knee Total Arthroplasty Left Chito Taylor MD Meds Allergies and Home Medications Allergies Allergy/AdvReac Type Severity Reaction Status Date / Time lisinopril Allergy Mild Other (See Verified 02/23/25 09:27 Comment) bee Allergy Unknown Other (See Uncoded 02/23/25 09:27 Comment) Home Medication ?Medication ?Instructions ?Recorded hydrochlorothiazide 25 mg tablet 25 mg PO QAM 12/21/12 losartan 100 mg tablet 100 mg PO DAILY 12/21/12 potassium chloride 10 mEq 10 meq PO DAILY 10/16/18 capsule,extended release diclofenac sodium 1 % topical gel 2 g topical TID PRN 12/20/21 amlodipine 10 mg tablet 10 mg PO DAILY 07/24/23 acetaminophen 500 mg tablet 1,000 mg (2 x 500 mg) PO Q8H PRN 02/23/25 pain #90 tabs aspirin 81 mg tablet,delayed 81 mg PO BID 30 days #60 tabs 02/23/25 release celecoxib 200 mg capsule (Celebrex) 200 mg PO BID PRN #60 caps 02/23/25 dexamethasone 4 mg tablet 4 mg PO DAILY #2 tabs 02/23/25 docusate sodium 100 mg capsule 100 mg PO BID #28 caps 02/23/25 (Colace) gabapentin 300 mg capsule 300 mg PO QHS #14 caps 02/23/25 oxycodone 5 mg tablet 5 mg PO Q4H PRN #18 tabs 02/23/25 pantoprazole 40 mg tablet,delayed 40 mg PO DAILY #14 tabs 02/23/25 release Current Visit Medications: Current Medications Generic Name Dose Route Start Last Admin Trade Name Freq PRN Reason Stop Dose Admin Acetaminophen 1,000 mg 02/23/25 06:00 02/23/25 10:03 Acetaminophen 500 Mg Tab PO 02/23/25 23:59 1,000 mg PREOP HIRAM Administration Celecoxib 400 mg 02/23/25 06:00 02/23/25 10:03 Celecoxib 200 Mg Cap PO 02/23/25 23:59 400 mg PREOP HIRAM Administration Gabapentin 300 mg 02/23/25 06:00 02/23/25 10:03 Gabapentin 300 Mg Cap PO 02/23/25 23:59 300 mg PREOP HIRAM Administration Hydromorphone HCl 0.5 mg 02/23/25 07:14 Hydromorphone 2 Mg/Ml Syr IVP 03/25/25 07:13 Q2H PRN PRN Ringer's Solution 1,000 mls @ 80 mls/hr 02/23/25 06:00 02/23/25 10:13 IV 02/23/25 23:59 80 mls/hr INFUSION HIRAM Administration Cefazolin Sodium/Dextrose 2 gm in 50 mls @ 100 mls/hr 02/23/25 06:00 Ancef Duplex IVPB 02/23/25 23:59 PREOP HIRAM Tranexamic Acid/Sodium Chloride 1,000 mg in 100 mls @ 600 mls/hr 02/23/25 06:00 IVPB 02/23/25 23:59 PREOP HIRAM Cefazolin Sodium/Dextrose 1 gm in 50 mls @ 100 mls/hr 02/23/25 08:00 Ancef Duplex IVPB 02/24/25 00:29 Q8H HIRAM IV Miscellaneous Supplies 1 each 02/23/25 06:00 Iv Access IV 02/23/25 23:59 DIRECTED HIRAM Oxycodone HCl 0 mg 02/23/25 07:14 Oxycodone 5 Mg Tab PO 03/25/25 07:13 Q3H PRN PRN Pain Sodium Chloride 0 ml 02/23/25 06:00 Normal Saline Flush 10 Ml Syr IV 02/23/25 23:59 PRN PRN Sodium Chloride 0 ml 02/23/25 06:00 Normal Saline 10 Ml Vial IJ 02/23/25 23:59 DIRECTED PRN Sterile Water 0 ml 02/23/25 06:00 Water,Injection,Sterile 10 Ml Vial IJ 02/23/25 23:59 DIRECTED PRN Tranexamic Acid 1,300 mg 02/23/25 07:14 Tranexamic Acid 650 Mg Tab PO 03/25/25 07:13 ONCE PRN postoperative PFSH Active Problems Active Problems: Problem Status Onset Code History of total left knee replacement Acute 02/23/25 Z96.652 Left arm numbness Acute R20.0 Lesion of liver Acute K76.9 Medical History Medical History Hypokalemia Pancreatic lesion HTN (hypertension) Arthralgia Surgical History Surgical History History of surgery on arm Dexter teeth extracted Colonoscopy - MAC (11/04/17) Tobacco Smoking/Tobacco Use Status: Former Tobacco Use Passive smoking exposure: No Alcohol Alcohol Intake: current Alcohol intake frequency: 0-2 drinks per day Substance Use Substance use: Daily Substance use type: marijuana Details: States no ETOH or pot since . 1-2 bowls daily, inhaled, is average. Vital Signs and Lab Results Vital Signs Most Recent Vital Signs in EMR: Most Recent Vital Signs Temp Pulse Resp BP Pulse Ox 36.9 C 71 14 141/90 H 97 02/23/25 09:34 02/23/25 09:34 02/23/25 09:34 02/23/25 09:34 02/23/25 09:34 Lab Results Complete Blood Count: WBC, (4.4-10.8) 9.27 10^3/uL 01/28/25, 08:35 RBC, (4.36-5.78) 5.29 10^6/uL 01/28/25, 08:35 Hgb, (13.5-17.5) 14.9 g/dL 01/28/25, 08:35 Hct, (40.0-50.0) 44.3 % 01/28/25, 08:35 Plt Count, (130-400) 270 10^3/uL 01/28/25, 08:35 Complete Metabolic Panel: Sodium, (136-145) 141 mmol/L 01/28/25, 08:35 Potassium, (3.5-5.1) 3.8 mmol/L 01/28/25, 08:35 Chloride, (98-107) 104 mmol/L 01/28/25, 08:35 Carbon Dioxide, (21.0-32.0) 28.0 mmol/L 01/28/25, 08:35 BUN, (7-18) 15 mg/dL 01/28/25, 08:35 Creatinine, (0.70-1.30) 0.8 mg/dL 01/28/25, 08:35 Est GFR (CKD-EPI 2020), (mL/min/1.73m2) 101.95 01/28/25, 08:35 Calcium, (8.5-10.1) 9.0 mg/dL 01/28/25, 08:35 Albumin, (3.4-5.0) 4.0 g/dL 01/28/25, 08:35 Glucose, (74-106) 114 mg/dL H 01/28/25, 08:35 Liver Function Panel: ALT, (16-63) 72 U/L H 01/28/25, 08:35 AST, (15-37) 52 U/L H 01/28/25, 08:35 Anesthesia Assessment and Plan Anesthesia History Personal History: Delayed Emergence Family History: Family History Unknown Exercise Tolerance Exercise Tolerance: Metabolic Equivalents>4 Cardiac & Pulmonary Exam Cardiac Exam: Normal S1/S2 Heart Sounds Pulmonary Exam: Clear Bilateral Breath Sounds Implantable Cardiac Device Does patient have a Pacemaker or an ICD?: No Airway Exam Known Difficult Airway: No Mallampati Class: 2 Mouth Opening: Normal (> 3cm) Thyromental Distance: Less than 3 cm Neck Range of Motion: Limited ROM Neck Circumference: Normal Teeth Condition: Normal Dentition ASA Classification ASA Score: ASA 2 Emergency Case?: No NPO Status NPO Status: NPO Clears >2 hours, Solids >8 hours Anesthesia Plan Resuscitation Status: Full Code Anesthesia Technique: MAC Anesthesia Airway Planned: Natural Airway Pain Management: Surgeon and patient request nerve block Monitors Used: Standard Monitors Preoperative Comments:: 59 yo for TKA. Sig PMHX: HTN (amlodipine, HCTZ, losartan. 120/70 at home), BPH, former smoker, occ EtOH, daily cannabis. Denies GERD. Approp NPO. Previous Anes: - colo, prop, natural airway, no issues.
--- NOTE | 2025-02-23 12:15 | W.ANESNERVE ---
Nerve Block Single Injection Procedure Date and Time Date Performed: 02/23/25 Procedure Start: 11:19 Location Where Procedure Performed Procedure Location: Day Surgery Unit Reason Performed: Postoperative Analgesia Requesting Provider: Chito Taylor Timeout Performed Timeout Performed: Yes Monitoring Used ECG, Blood Pressure, SpO2 and See EMR for corresponding vital signs Sterility Sterility: Hand Hygiene, Surgical Cap, Surgical Mask, Sterile Gloves and Chlorhexidine Sedation Given During Procedure Sedation Given (Indicate Dose Given): Versed IV Dose:: 1mg Patient Mental Status Patient Mental Status: Sedate with meaningful communication Nerve Block 1st Nerve Block: Laterality: Left Block Type: Adductor Canal Ultrasound Image Saved?: Yes Needle / Catheter Used: 100mm SonoPlex II Local Anesthetic Bolus (Indicate Dose Given): Lidocaine used for local infiltration of skin, Injected in 3-5ml increments after negative blood aspiration, Bupivacaine 0.25% Dose:: 10ml and Exparel Dose:: 10ml Additives (Indicate Dose Given): None Ultrasound: Sterile probe cover and gel used Nerve Stimulator: Supplement to Ultrasound use and No twitch or parasthesia noted < 0.5 mA Paresthesia: None Procedure Tolerated: No Complications Procedure Outcome: Successful Performed By: Malaika Spencer Supervised By: Shereen Rosenthal
[2025-02-23] MEDS: ceFAZolin 2 GM/50 ML BAG IVPB (12:28)
[2025-02-23] MEDS: TRANEXAMIC ACID/SOD. CHL. 1,000 MG/100 ML BAG 600 MG IVPB (12:45)
--- NOTE | 2025-02-23 14:49 | W.ANESPOSTOP ---
Postoperative Evaluation Date, Time and Location Date Performed: 02/21/25 Time Performed: 14:50 Patient Location: PACU Vital Signs Most Recent Imported Vital Signs: Most Recent Vital Signs Temp Pulse Resp BP Pulse Ox 36.4 C L 63 16 123/89 97 02/23/25 14:41 02/23/25 14:41 02/23/25 14:41 02/23/25 14:41 02/23/25 14:41 Pain Score Most Recent Pain Score: Most Recent Pain Score Pain Level 0 02/23/25 14:41 Assessment Mental Status: Awake (Alert & Oriented to Patient Baseline) Airway and Respiratory Function: Patent airway with normal (patient baseline) respiratory exam Cardiovascular Function: Hemodynamically Stable Hydration Status: Adequately Hydrated Nausea & Vomiting: No Nausea or Vomiting Pain: Pt. Denies Any Pain Peripheral Nerve Block: Regional nerve block not resolved at time of post operative discharge
[2025-02-23] MEDS: Tranexamic Acid 650 MG TAB 1300 MG PO (15:13)
--- NOTE | 2025-02-23 15:17 | IN_ITS ---
PT Notes Visit Reasons: Left knee DJD Physical Therapy Day Surgery Initial Evaluation Date: 02/23/2025 Referring Doctor: Laurel Tyler NP/Dr. Taylor PT Orders: PT CONSULT: Status post Ortho surgery Precautions: WBAT left LE with assistive device Patient Profile/Admitting Diagnosis: Patient is a 59-year-old male presenting status post elective left TKA under spinal anesthesia by Dr. Taylor on 02/23/2025. Postop uncomplicated PMHX: Osteoarthritis of left knee (Chronic) DEPO MEDROL 09/12/23Left arm numbness (Acute) Lesion of liver (Acute) Medical History Arthralgia HTN (hypertension) Hypokalemia Pancreatic lesion Surgical History Colonoscopy - MAC (11/04/17) Social History/Home Situation: Patient resides with his in single-family home 1 level with 8 steps to enter bilateral rails. 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 Independent driving independent ambulation without device independent ADLs Equipment Owned/DME: [facility] Subjective: Patient reports he has had intermittent times of this tremulous movement. Objective: [] General Observation: Male semireclined on stretcher with Cryo/Cuff to left knee. Patient with intermittent tremulous movements of bilateral upper and lower extremities similar to having chills. Tremulous movements stopped with active movement. And resolved once out of bed. present Mental Status: Alert and oriented x 4, able to follow instructions, agreeable to participate in evaluation Pain: left knee 5/10 ROM: [] Right Upper Extremity: WFL Left Upper Extremity: WFL Right Lower Extremity: WFL Left Lower Extremity: WFL hip and ankle knee 0-93 degrees Strength: [] Right Upper Extremity: 5/5 Left Upper Extremity: 5/5 Right Lower Extremity: 5/5 Left Lower Extremity: Hip flexion: 3/5; hip abduction: 3/5; hip extension: 3/5; knee extension: 3/5; knee flexion: 3 -/5 ankle DF: 3/5 ; ankle PF: 3/5; strong quad set ;able to perform straight leg raise without lag through shortened range Sensation: Intact to pain and light touch Bed Mobility/Transfers: [] Supine to sit independent Sit to stand SBA with cues for hand placement Stand to sit SBA with cues for hand placement Bed to chair SBA with FWW Gait:amb with FWW with SBA with verbal cues for sequencing and left quad activation at mid stance. Pt demonstrates decreased knee flexion left during swing phase and utilizes hip hike and circumduction to advance LE Stairs: 3 4 steps? and 2 6 steps with rails SBA with continuous cues for sequencing step to pattern, quad activation with WB left. Pt utililzes circumduction with no knee flexion to bring left LE up onto step.ascending. Balance: [] Static Sitting: Normal Dynamic Sitting: Good Static Standing: Good with UE support Dynamic Standing: Fair + with 1 UE support Special Tests: [] Mobility Limitations Standardized Measure [] [facility] 6 clicks Basic Mobility Inpatient Short Form: [] Raw Score: 22 CMS Score: 20.91% Informed Consent/Education: Patient instructed in purpose of PT consult. Treatment: 26381 Packet containing TKA exercise protocol has been given to patient. Education and training on initial set of 3 reps of exercises that can be done at home have been completed with patient. Assessment: Patient is a 59 yo male who presents with clinical signs and symptoms consistent with current/admitting diagnoses that have resulted to mobility limitations, gait instability, generalized weakness, and impairment of motor control as demonstrated by the following impairment level findings: 1. Decreased strength to left knee major muscle groups 2. Impaired standing balance 3. Limitation of joint range of motion in left knee 4. Pain in left knee 5. Impaired functional activity tolerance in standing Impairments are contributing to the following functional limitations: 1. Inability to safely ambulate without assistive device 2. Increase completion time for mobility ADL performance 3. Increased fall risk 4. Difficulty performing stairs without assistance and assistive device Patient is assessed as a low complexity based on the following: History:59-year-old male with impairment level findings, functional limitations, and past medical history as indicated above Examination: Demonstrable impairment in strength, balance, and mobility level with underlying impairments and functional limitations as documented above Presentation: stable Decision Making: low Goals: N/A. PT evaluation and 1-2 treatment sessions only for functional mobility training using recommended AD and for HEP instruction. Plan of Care/Treatment Plan: N/A. PT evaluation and 1-2 treatment session only for functional mobility training using recommended AD and for HEP instruction. DISCHARGE RECOMMENDATIONS: Home with HEP and Outpatient PT as scheduled TREATMENT CODE/TIME: 37287, 18125/ [id number] Thank you for the opportunity to participate in the care of this patient. Sherri Balderas, PT [facility]
--- NOTE | 2025-02-23 15:50 | ROE_ITS ---
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 Depuy Attune Cementless Cruciate Retaining Femoral Component, Size 8 2. Depuy Attune Cementless Fixed Bearing Tibial Component, Size 7 3. Depuy Attune 8x6mm CR/FB Poly Indications: I have seen Bladimir in clinic for symptoms of knee arthritis, confirmed with radiographic findings. He has exhausted nonoperative methods and was having significant limitations in daily function and desired better function and less pain. I discussed the technical details of a knee replacement. I explained the risks of the procedure to include, but not limited to, bleeding, infection, pain, stiffness, fracture, damage to nerves and vessels, damage to muscles and tendons, loosening, need for repeat procedure, blood clot and cardiopulmonary demise. Despite these risks, Bladimir elected to proceed. Findings: There was significant signs of arthritis throughout the knee. Procedure Description: Bladimir was greeted in the preoperative holding area where the correct side was identified and marked. The consent was reviewed with the patient and signed. The history and physical was updated. All questions were answered. Preoperative medications were administered: Acetaminophen 1000mg, Celebrex 400mg, and Gabapentin 300mg. An adductor canal block was then administered by the anesthesia team in the D[facility]. He was taken back to the operating room. A spinal anesthestic was then administered. The patient was placed into the supine position on the operating room table. Posts were placed for positioning during the procedure. All bony prominences were well padded. Prophylactic antibiotics in the form of Cefazolin were administered. 1g of Tranxemic Acid was given intravenously within 30 minutes of incision. The left leg was then prepped with Chloraprep and draped in a standard fashion with impervious stockinette. A second prep with Chloraprep was performed prior to application of Iodine impregnated skin protection. A timeout to confirm correct identity, side and site, procedure, allergies, anesthesia, and medical concerns was performed. With the knee in some flexion, a midline incision was made overlying the knee. Full thickness skin flaps were raised once the extensor mechanism was encountered. These were raised medially and laterally. Any bleeding was controlled with electrocautery. Once the extensor mechanism was fully exposed, a medial parapatellar arthrotomy was performed in a flexed position. All bleeding from the arthrotomy and the geniculate arteries was coagulated. A medial subperiosteal peel was performed with electrocautery to the midcoronal plane. Due to the significant varus deformity the entire medial tibial plateau was exposed. The fat pad was removed while keeping the patellar tendon protected. The anterior distal femur synovium was removed for later visualization. The ACL and PCL were resected and the anterior horn of the lateral meniscus was transected. The knee was then flexed with the patella everted. Large osteophytes from the tibia were removed. Large osteophytes from the femur were removed. Using a step drill, and based on preoperative templating, the femoral canal was entered. This was done with a step drill without any difficulty. The intramedullary distal femoral cut guide was inserted, set to a 5 degree valgus cut and 9mm cut thickness. The distal femoral cut guide was then held in position and pinned. With the soft tissues protected, the distal cut was performed. This was passed over a few times to ensure a planar cut. I then turned attention to the tibia. The extramedullary guide was placed onto the leg. The distal aspect was slid medial to adjust for position of center of ankle and stay in line with shaft of the tibia. Approximately 5 degrees of posterior slope was kept in the proximal cutting guide. The center of the guide was aligned with the PCL. The stylus was used to assess cut thickness. The medial side, most involved side, was set for a 4mm cut. This was then held in position and pinned into place with 2 additional pins and a cross pin for stability. The medial and lateral collateral ligaments were protected and the cut was performed. With this completed, it was assessed and noted to be of appropriate dimensions. The guide was removed. A spacer block was inserted and the knee was brought into extension. The 6mm spacer block provided full extension, without hyperextension and with stability of both the medial and lateral collateral ligaments was assessed. The pins from the femur and the tibia were then removed. The distal femur was then sized. The anterior stylus was placed onto the lateral ridge of the anterior femur. This indicated a size 8 femur. The external rotation of the guide was adjusted to 3 degrees to match the epicondylar axis, perpendicular to [place]?s line. The 4-in-1 cutting guide was the placed. The posterior medial femur cut was evaluated and appeared of good thickness. The spacer block was inserted underneath the cutting guide and stability was confirmed in 90 degrees of flexion. An new wing was used to confirm appropriate position of the anterior cut to avoid notching. This cutting guide was ensured to be flush on the cut surface and then pinned into place with headed pins. While protecting the soft tissues, quad tendon, and collateral ligaments, the anterior and posterior cuts were performed with a saw. The central two pins were removed and the posterior and anterior chamfers were cut next. The notch-cutting guide was placed. This was pinned to lateralize the femoral component as much as possible while keeping it flush on the cut surface. This was then pinned into position. A reciprocating saw was used to make the notch cut. A rasp smoothed the cut surfaces. The medial and lateral menisci were removed. A trial femoral component was then inserted, impacted down to the cut surfaces, and the lug holes were drilled. A provisional trial tibial component was placed and the knee was brought through range of motion. There was noted to be excellent extension and flexion. There was no significant instability. The patella was tracking without thumbs. A size 6mm polyethylene component provided the best range of motion and stability with less than 2mm gapping with medial and lateral stress and full extension without significant hyperextension. The tibial cut surface was fully exposed. The tibia was then sized as a 7. The tibia had been previously marked during trialing to correspond to the center of the tibial component to help with rotation. The trial was aligned to this cristal, approximately rotated to the medial 1/3rd of the tibial tubercle. The trial was pinned into place. The tibia was prepared with a reamer and a keel punch and lug holes. The trial components were removed. The final components were opened on the back table. The periosteal and capsular tissues, especially posteriorly, around the knee were then systematically injected with a periarticular cocktail consisting of 246mg of Ropivacaine, 0.5mg of Epinephrine, 0.08mg of Clonidine, and 30mg of Ketorolac, diluted to 100cc. On the back table, with the implants opened. The cementless knee components were placed. Starting with the tibial component, the tibia was subluxed anteriorly and the lug holes of the component were lined up. The tibia was then impacted with an impactor and mallet until the tibial component was in contact with the tibia. Then, the femoral component was inserted. The lug holes were aligned and the component was impacted into position. The final polyethylene component was inserted. The knee was irrigated with Surgiphor Betadine solution. This was allowed to sit in the knee for 3 minutes and then it was irrigated out with saline. The patella was tracking with a no-thumbs technique. A complete synovectomy was performed around the periphery of the patella. A lateral facetectomy was also performed. The capsule was then reapproximated with a No. 1 Vicryl at multiple locations. The capsule was finally closed with a No. 2 Stratafix, barbed suture. Deep tissues were then reapproximated with 0 Vicryl and 2-0 Vicryl. The skin was closed with a running 3-0 Monocryl in a subcuticular fashion. This was reinforced with skin glue. A Mepilex silver dressing was applied along with a [id number] JULIO C wrap. A CryoCuff was applied. Bladimir was transferred to the hospital bed without difficulty an suffering no apparent complication. Bladimir has a good prognosis. Physical therapy will start today and without restrictions, weight-bearing as tolerated. Aspirin 81mg BID will be used for DVT prophylaxis. Date of Procedure: 02/23/25
[2025-02-23] MEDS: oxyCODONE 5 MG TAB PO (16:00)
== END 2025-02-23 16:07 | disposition home or self-care (01) ==
LOC: SUR 09:12
PROVIDERS: PCP Family Medicine; Visit Provider Student in an Organized Health Care Education/Training Program
PROC: (CPT 27447; principal; 2025-02-23 13:15)
DX: M17.12 Unilateral primary osteoarthritis, left knee (principal); G89.18 Other acute postprocedural pain; I10 Essential (primary) hypertension; Z87.891 Personal history of nicotine dependence
CPT/HCPCS: 27447; 97110; 97161; C1776; J0665; J0666; J0690; J1100; J2250; J2371; J2401; J2405; J2704

== ENCOUNTER 2025-03-08 11:53 | Outpatient (CLI) | payer OTHER, SELFPAY ==
--- NOTE | 2025-03-08 10:15 | DI.RAD_ITS ---
Exam(s) XR KNEE LT 1V XR STANDING ALIGNMENT EXAM: XR STANDING ALIGNMENT and XR knee LT 1 V CLINICAL HISTORY: 1ST POST OP S/P L TKA. TECHNIQUE: 2D digital imaging was performed. Six images were obtained. COMPARISON: CR XR STANDING ALIGNMENT from 02/12/2025 CR XR KNEE LT 1V from 02/12/2025 FINDINGS: BONES: Degenerative changes are seen in the hips bilaterally. Since the prior examination the patient has undergone a left total knee arthroplasty. Orthopedic hardware appears in good position. There are no suspicious lucencies around the orthopedic hardware. In the right knee there is mild degenerative change present characterized by joint space narrowing and osteophytes in the medial femoral tibial joint. The ankles are well maintained.There is no significant leg length discrepancy. SOFT TISSUE: Normal. IMPRESSION: 1. Interval placement of a left total knee arthroplasty. 2. Mild degenerative changes of the right knee. DATA REPOSITORY: RADIATION DOSE DELIVERED:
== END 2025-03-08 11:54 | disposition home or self-care (01) ==
LOC: DIORS 11:53
PROVIDERS: PCP Family Medicine; Visit Provider Physician Assistant
DX: Z96.652 Presence of left artificial knee joint (principal); M17.11 Unilateral primary osteoarthritis, right knee
CPT/HCPCS: 73560; 77073